=== PATIENT | male | born 1970 | race Caucasian/White ===

== ENCOUNTER 2018-02-10 07:51 | Day surgery (SDC) | payer OTHER ==
[~2018-02-10 07:51] MED LIST: CEFAZOLIN/SWI 1gm 1 GM/10 ML SYR ONE; Ringers Lactate 1,000 ML IV ONE
[2018-02-10] MEDS ORDERED: CEFAZOLIN/SWI 1gm 1 GM/10 ML SYR ONE (08:03)
[2018-02-10] MEDS ORDERED: NA CHLORIDE 0.9% 1,000 ML ONE (08:03)
[2018-02-10] MEDS ORDERED: BUPIVACA 0.25%/EPI 0.0005% MDV 50 ML VIAL ONE (08:06)
[2018-02-10] MEDS ORDERED: HYDRALAZINE HCL 20 MG/ML VIAL ONE (08:07)
[2018-02-10] MEDS ORDERED: PROPOFOL 200 MG/20 ML VIAL IV ONE (08:25)
[2018-02-10] MEDS ORDERED: ROCURONIUM 50 MG/5 ML VIAL IV ONE (08:25)
[2018-02-10] MEDS ORDERED: ONDANSETRON 4 MG/2 ML VIAL ONE (08:25)
[2018-02-10] MEDS ORDERED: FENTANYL CITR 250 MCG/5 ML ONE (08:25)
[2018-02-10] MEDS ORDERED: GLYCOPYRROLATE 0.2 MG/ML SYR ONE (08:25)
[2018-02-10] MEDS ORDERED: MIDAZOLAM HCL 2 MG/2 ML INJ ONE (08:25)
[2018-02-10] MEDS ORDERED: LABETALOL HCL 100 MG/20 ML ONE (08:35)
--- NOTE | 2018-02-10 09:30 | P.OP ---
Preoperative diagnosis: Umbilical Hernia Postoperative diagnosis: Umbilical Hernia Primary procedure: Open Primary Umbilical Hernia Repair Anesthesia: GETA +Local Estimated blood loss: <5cc Specimen: Hernia sac and preperitoneal fat Findings: ~1 cm umbilical hernia Complications: None Transferred to: Recovery Room Condition: Good
[2018-02-10 10:34] VITALS: BP 132/88; TEMP 97.7; O2SAT 95
--- NOTE | 2018-02-10 14:05 | OP ---
Date of Procedure: 02/10/2018 Surgeon: Milton Soliz MD, Preoperative Diagnosis: Umbilical hernia. Postoperative Diagnosis: Umbilical hernia. Procedure Performed: Open primary umbilical hernia repair without mesh. Anesthesia: General endotracheal plus local with 0.25% Marcaine. Estimated Blood Loss: Less than 5 cc. Specimens: Hernia sac and preperitoneal fat. Findings: 1-cm umbilical hernia with no contents. Complications: None. Disposition: Transferred to recovery room in good condition. Procedure In Detail: After informed consent was obtained, the patient was brought to the operating r oom, prepped and draped in the usual sterile fashion. After adequate anesthesia was achieved, an inf raumbilical area in a curvilinear fashion was taken down through the subcutaneous tissues with a 15 b lade. Electrocautery used to dissect down to the layer of the abdominal fascia through the fat to th e fascial plane. The hernia defect was appreciated digitally to the umbilicus. A small linear incis ion was made through this and the hernia sac was opened in its entirety. The preperitoneal fat was r eturned to the abdominal compartment. There was some adherent to this hernia sac. This was grasped, elevated, and circumferentially dissected out. This was ligated at this time. The hernia sac and p reperitoneal fat were sent off for pathologic examination. Hemostasis was achieved easily with elect rocautery. The area was then finger swept and found to have a good, no additional fat contents were in the hernia defect at this time. I then grasped and elevated the fascial plane using Velvet clamps and I closed the hernia defect using 0 Ethibond suture in a running fashion with good approximation tissues. I then used the 3-0 Vicryl suture to secure the umbilicus back down to the abdominal fascia . The area was copiously irrigated multiple times until completely clear and the subcutaneous layer was closed with a single interrupted 3-0 Vicryl and the skin was closed with a 4-0 Monocryl in a runn ing fashion. Dermabond was placed over top. The patient tolerated the procedure well without any co mplications, transferred to the PACU in good condition. All counts were correct at the end of the ca se. TK/MODL Voice ID: [id number] Report ID: [id number]
== END 2018-02-10 11:00 | disposition home or self-care (01) ==
LOC: OR 07:51
PROVIDERS: ATTEND Surgery
PROC: 0WQF0ZZ Repair Abdominal Wall, Open Approach (ICD-10-PCS; principal; 2018-02-10 08:30)
DX: K42.9 Umbilical hernia without obstruction or gangrene (principal); I12.9 Hypertensive chronic kidney disease with stage 1 through stage 4 chronic kidney disease, or unspecified chronic kidney disease; E11.22 Type 2 diabetes mellitus with diabetic chronic kidney disease; N18.9 Chronic kidney disease, unspecified; K21.9 Gastro-esophageal reflux disease without esophagitis; E78.5 Hyperlipidemia, unspecified; Z79.82 Long term (current) use of aspirin; Z86.73 Personal history of transient ischemic attack (TIA), and cerebral infarction without residual deficits; F17.220 Nicotine dependence, chewing tobacco, uncomplicated; Z82.49 Family history of ischemic heart disease and other diseases of the circulatory system; Z83.3 Family history of diabetes mellitus; Z82.3 Family history of stroke; Z80.3 Family history of malignant neoplasm of breast
CPT/HCPCS: 82962; 88302; J0360; J0690; J2250; J2405; J7030